=== PATIENT | female | born 1965 | race American Indian/Alaskan Native ===

== ENCOUNTER 2022-05-06 06:26 | Emergency (ER) | payer SELFPAY ==
--- NOTE | 2022-05-06 08:03 | Cat Scan Report ---
CT HEAD WITHOUT CONTRAST INDICATION / CLINICAL INFORMATION: neuro deficits <6hrs or sx present upon awakening. TECHNIQUE: All CT scans at this location are performed using CT dose reduction for ALARA by means of automated e xposure control. COMPARISON: None available. FINDINGS: There is occipital scalp hematoma. Ventricles are normal in size and appearance. No acute intracrania l hemorrhage. No midline shift or mass effect. The orbits and intraocular muscles appear normal. Sell a appears normal. The sinuses are clear. ADDITIONAL FINDINGS: None. IMPRESSION: 1. Occipital scalp hematoma. No acute intracranial hemorrhage is definitely seen. No midline shift or mass effect. Signer Name: Abhijit Rowland MD Signed: 05/06/2022 7:58 AM Workstation Name: [id number]
[2022-05-06] MEDS ORDERED: METOCLOPRAMIDE 10 MG TAB PO ONE (12:21)
[2022-05-06] MEDS ORDERED: ACETAMINOPHEN 325 MG TAB PO ONE (12:21)
--- NOTE | 2022-05-06 12:23 | Emergency Department Report ---
ED General Adult HPI - General Chief complaint: Head Injury Stated complaint: FELL HIT HEAD Time Seen by Provider: 05/06/22 12:20 Source: patient, RN notes reviewed Mode of arrival: Ambulatory Limitations: No Limitations - History of Present Illness Initial comments: The patient was evaluated in the emergency department for symptoms described in the history of present illness. He/she was evaluated in the context of the global COVID-19 pandemic, which necessitated consideration that the patient might be at risk for infection with the virus that causes COVID-19. Institutional protocols and algorithms that pertain to the evaluation of patients at risk for COVID-19 are in a state of rapid change based on information released by regulatory bodies including the CDC and federal and state organizations. These policies and algorithms were followed during the patient's care in the emergency department. Please note that these policies, procedures and recommendations changed on a rapid basis. During the history and physical I am chaperoned by Madeline Salvador This is a pleasant and cooperative 57-year-old female who presents to the ER today with a complaint of occipital head injury. 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 Prior to the fall, she endorsed her typical usual bilateral knee pain, but otherwise describes no other antecedent symptoms. She does not know how far she fell. She has an occipital headache. No loss of vision. No midline neck pain. No confusion. No extremity weakness or numbness. No additional injuries or complaints. She took ibuprofen. She was seen at an out facility urgent care center, and was referred to the emergency room for a CT scan of the brain. In addition, she had x-rays of the skull, which suggested a possible fracture of the skull. -: Sudden, hour(s) Location: head Radiation: non-radiation Severity scale (0 -10): 8 Quality: aching Consistency: constant Improves with: none Worsens with: none Associated Symptoms: denies other symptoms - Related Data Previous Rx's Medication Instructions Recorded Last Taken Type Acetaminophen [Non-Aspirin Extra 500 mg PO Q6HR PRN #30 tablet 05/06/22 Unknown Rx Strength] Ibuprofen [Motrin] 600 mg PO Q8H PRN #30 tablet 05/06/22 Unknown Rx Metoclopramide [Reglan] 10 mg PO QID PRN #30 tablet 05/06/22 Unknown Rx Allergies Allergy/AdvReac Type Severity Reaction Status Date / Time No Known Allergies Allergy Verified 05/06/22 07:12 ED Review of Systems ROS: Stated complaint: FELL HIT HEAD Other details as noted in HPI Comment: All other systems reviewed and negative Musculoskeletal: arthralgia Neurological: headache. denies: weakness, numbness, paresthesias, confusion ED Past Medical Hx - Past Medical History Hx Hypertension: Yes - Social History Smoking Status: Never Smoker - Medications Home Medications: Home Medications Medication Instructions Recorded Confirmed Last Taken Type Acetaminophen [Non-Aspirin Extra 500 mg PO Q6HR PRN #30 tablet 05/06/22 Unknown Rx Strength] Ibuprofen [Motrin] 600 mg PO Q8H PRN #30 tablet 05/06/22 Unknown Rx Metoclopramide [Reglan] 10 mg PO QID PRN #30 tablet 05/06/22 Unknown Rx ED Physical Exam - General Limitations: No Limitations General appearance: alert, in no apparent distress, obese - Head Head exam: Present: normocephalic, other (There is an occipital scalp hematoma) - Eye Eye exam: Present: normal appearance, PERRL, EOMI. Absent: nystagmus - ENT ENT exam: Present: normal exam, normal orophraynx, mucous membranes moist, TM's normal bilaterally, normal external ear exam, other (There is no nasal septal hematoma. There is no hemotympanum) - Neck Neck exam: Present: normal inspection, full ROM. Absent: tenderness, meningismus - Respiratory Respiratory exam: Present: normal lung sounds bilaterally. Absent: respiratory distress, wheezes, rales, rhonchi, stridor, decreased breath sounds - Cardiovascular Cardiovascular Exam: Present: regular rate, normal rhythm, normal heart sounds. Absent: bradycardia, tachycardia, irregular rhythm, systolic murmur, diastolic murmur, rubs, gallop - GI/Abdominal GI/Abdominal exam: Present: soft. Absent: distended, tenderness, guarding, rebound, rigid, pulsatile mass - Extremities Exam Extremities exam: Present: normal inspection, full ROM, normal capillary refill, other (2+ pulses noted in the bilateral upper and lower extremities. There is no palpable cord. negative Homans sign. Muscular compartments are soft. The pelvis is stable.). Absent: pedal edema, calf tenderness - Back Exam Back exam: Present: normal inspection, full ROM. Absent: tenderness, CVA tenderness (R), CVA tenderness (L), paraspinal tenderness, vertebral tenderness - Neurological Exam Neurological exam: Present: alert, oriented X3 (Able to add to +2, 5+5, subtract 100-10), other (There is no facial droop. The tongue is midline. EOMI. Sensation is intact to light touch in 4 extremities. 5 out of 5 strength in 4 extremities). Absent: motor sensory deficit - Psychiatric Psychiatric exam: Present: normal affect, normal mood - Skin Skin exam: Present: warm, dry, intact, normal color. Absent: rash ED Course Vital Signs 05/06/22 05/06/22 05/06/22 07:07 11:45 11:47 Temperature 98.3 F Pulse Rate 69 65 65 Respiratory 14 18 18 Rate Blood Pressure 157/92 149/85 Blood Pressure 149/85 [Right] O2 Sat by Pulse 100 99 99 Oximetry O2 Sat by Pulse Oximetry [ Digit-Finger] 05/06/22 05/06/22 12:00 12:23 Temperature Pulse Rate Respiratory Rate Blood Pressure Blood Pressure [Right] O2 Sat by Pulse 99 Oximetry O2 Sat by Pulse 99 Oximetry [ Digit-Finger] - Pulse Oximetry Interpretation Digit-Finger Initial Pulse Oximetry Readin O2 Sat by Pulse Oximetry: 99 Actions Taken: none ED Medical Decision Making - Lab Data Vital Signs 05/06/22 05/06/22 05/06/22 07:07 11:45 11:47 Temperature 98.3 F Pulse Rate 69 65 65 Respiratory 14 18 18 Rate Blood Pressure 157/92 149/85 Blood Pressure 149/85 [Right] O2 Sat by Pulse 100 99 99 Oximetry 05/06/22 12:00 Temperature Pulse Rate Respiratory Rate Blood Pressure Blood Pressure [Right] O2 Sat by Pulse 99 Oximetry - Radiology Data Radiology results: pending, report reviewed, image reviewed CT HEAD WITHOUT CONTRAST INDICATION / CLINICAL INFORMATION: neuro deficits <6hrs or sx present upon awakening. TECHNIQUE: All CT scans at this location are performed using CT dose reduction for ALARA by means of automated exposure control. COMPARISON: None available. FINDINGS: There is occipital scalp hematoma. Ventricles are normal in size and appearance. No acute intracranial hemorrhage. No midline shift or mass effect. The orbits and intraocular muscles appear normal. Sella appears normal. The sinuses are clear. ADDITIONAL FINDINGS: None. IMPRESSION: 1. Occipital scalp hematoma. No acute intracranial hemorrhage is definitely seen. No midline shift or mass effect. Signer Name: Abhijit Rowland MD Signed: 05/06/2022 6:58 AM Workstation Name: [id number] - Medical Decision Making Differential diagnosis, including but not limited to: Concussion, hematoma, closed head injury Assessment and plan: 57-year-old female, who is clinically sober with a GCS of 15, patient is clinically sober at this time. The cervical spine is cleared through nexus and [place] c spine rule who is presenting approximately 11 hours after fall and closed head injury, with probable mild concussion and closed head injury. CT scan of the brain in the emergency room did not demonstrate any emergent findings. Her C-spine is cleared through the aforementioned mechanisms. Patient advised as to the natural history of closed head injury and concussion. Specifically, her CT scan did not demonstrate any evidence of fracture. This was specifically discussed with the interpreting radiologist. She is suitable to follow-up with an outpatient primary care doctor for concussion and closed head injury. Return precautions are reviewed. All questions answered. Critical care attestation.: If time is entered above; I have spent that time in minutes in the direct care of this critically ill patient, excluding procedure time. ED Disposition Clinical Impression: Closed head injury Qualifiers: Encounter type: initial encounter Qualified Code(s): S09.90XA - Unspecified injury of head, initial encounter Disposition: 01 HOME / SELF CARE / HOMELESS Is pt being admited?: No Does the pt Need Aspirin: No Condition: Good Instructions: Concussion, Adult, [id number] Additional Instructions: Rest, avoid heavy lifting, strenuous physical activity, and contact sports/athletics. Return to activity as physically tolerated. Do not return to full duty, contact sports, or athletics until cleared to do so by a primary care doctor or Worker's Compensation physician. Recommend follow-up with the aforementioned within the next 5 [address] scan of the brain which showed no fracture, dislocation, or intracranial bleeding. Patient most likely has a concussion. Symptoms of concussion include dizziness, lightheadedness, fogginess, forgetfulness, sensitivity to light, sounds. Symptoms of concussion may last for days, weeks, or months. Please take the prescribed medications as needed and directed. Avoid consumption of alcohol, tobacco, smoke products. Please return to the emergency room right away with new pain, worsened pain, migration of pain, projectile vomiting, change in mental status, confusion, inability tolerate liquid feeds, new, worsened or different symptoms not present on the initial emergency room evaluation Referrals: [facility] [Provider Group] - 3-5 Days Forms: Work/School Release Form(ED)
[2022-05-06 12:57] VITALS: BP 142/90
== END 2022-05-06 13:02 | disposition home or self-care (01) ==
LOC: ED 06:26
DX: S09.90XA Unspecified injury of head, initial encounter (principal); I10 Essential (primary) hypertension; W19.XXXA Unspecified fall, initial encounter; Y93.89 Activity, other specified; Y92.89 Other specified places as the place of occurrence of the external cause; Y99.8 Other external cause status
CPT/HCPCS: 70450; 99283